=== PATIENT | female | born 1955 | race Two or more races ===

== ENCOUNTER 2018-08-25 14:41 | Inpatient (IN) | payer OTHER ==
[~2018-08-25] VITALS: Ht 157.5 cm; Wt 54.4 kg
--- NOTE | 2018-08-25 14:44 | NUR ---
ACTIVATED CODE STROKE. SEE CODE STROKE FORM.
[2018-08-25] MEDS ORDERED: IV NS 0.9% 500 ML BAG IV ONE (15:00)
--- NOTE | 2018-08-25 15:00 | NUR ---
patient presented to the ER due to slurred speech 30 mins prior arrival. on room air, breathing evenly and unlabored. kept comfortable. denies any pain at this time. connected to the monitor. will continue to monitor accordingly.
[2018-08-25 15:11] LABS: CALCIUM, SERUM 10.3 mg/dL (8.5-10.1); CARBON DIOXIDE 27 mmol/L (21-32); CHLORIDE 105 mmol/L (98-107); CREATININE 0.7 mg/dL (0.6-1.3); GLUCOSE 139 mg/dL (74-106); POTASSIUM 3.6 mmol/L (3.5-5.1); SODIUM SERUM 141 mmol/L (136-145); UREA NITROGEN, BLOOD 15 mg/dL (7-18)
[2018-08-25 15:16] LABS: ALANINE AMINOTRANSFERASE 49 U/L (12-78); ALBUMIN 4.3 g/dL (3.4-5.0); ALKALINE PHOSPHATASE 74 U/L (46-116); ASPARTATE AMINOTRANSFERASE 34 U/L (15-37); BILIRUBIN,DIRECT 0.1 mg/dL (0.0-0.2); BILIRUBIN,TOTAL 0.4 mg/dL (0.2-1.0); TOTAL PROTEIN, SERUM 8.2 g/dL (6.4-8.2)
--- NOTE | 2018-08-25 15:16 | NUR ---
CALLED TELE STROKE NUMBER AND BLADE ALIGNER NEUROLOGIST, DR PATEL, WILL CALL BACK.
[2018-08-25 15:20] LABS: BASOPHILS # (AUTO) 0.1 /CMM (0.0-0.2); EOSINOPHILS % (AUTO) 0.8 % (0.0-6.0); HEMATOCRIT 43 % (33-45); HEMOGLOBIN 14.4 g/dL (11.5-14.8); LYMPHOCYTES # (AUTO) 1.6 /CMM (0.8-4.8); LYMPHOCYTES % (AUTO) 26.7 % (20.0-44.0); MEAN CORPUSCULAR HGB CONC 33 g/dl (31.0-36.0); MEAN CORPUSCULAR VOLUME 94 fL (82-100); MONOCYTES # (AUTO) 0.5 /CMM (0.1-1.30); NEUTROPHILS # (AUTO) 3.8 /CMM (1.8-8.9); NEUTROPHILS % (AUTO) 63.5 % (43.0-81.0); PLATELET COUNT (AUTO) 256 /CMM (150-450); RED BLOOD CELL COUNT(AUTO) 4.58 MIL/uL (4.0-5.2)
[2018-08-25] MEDS ORDERED: ASPIRIN 325 MG TABLET ONE (15:58)
[2018-08-25] MEDS ORDERED: ASPIRIN 325 MG TABLET PO ONE (16:00)
[2018-08-25 16:21] LABS: CHOLESTEROL 270 mg/dL (<200); HDL CHOLESTEROL 95 mg/dL (40-60); LDL 151 mg/dL (0-99); TRIGLYCERIDES 113 mg/dL (30-150)
--- NOTE | 2018-08-25 17:25 | NUR ---
CALLED [facility] AND SPOKE TO ELVER MORGAN FOR VERO.
[2018-08-25 17:33] LABS: THYROID STIMULATING HORMONE 1.786 uIU/mL (0.358-3.74)
[2018-08-25 17:50] VITALS: BP 124/81
--- NOTE | 2018-08-25 17:52 | NUR ---
TRANSFERRED PATIENT VIA ACLS PROTOCOL IN NO APPARENT DISTRESS NOTED.
--- NOTE | 2018-08-25 18:00 | NUR ---
ADMISSION NOTES RECEIVED PATIENT FROM ER ON TELE Dx OF R/O STROKE. PUT PATIENT ON TELE MONITOR SR-75. PATIENT A/O X4, STABLE REFUSED DIZZINESS STABLE TO STAND AND SIT CHECKED V/S STABLE, BP-124/81,P-66, R-18, 02-100 ROOM AIR, T-97.8. PATIENT REFUSED PAIN AT THIS TIME. NO ACUTE RESPIRATORY DISTRESS, UNLABORED. LUNGS ARE CLEAR DURING CONSULTATION. PATIENT SELF CARE USING BATHROOM. SKIN ASSESSMENT DONE SKIN CLEAR INTACT. DR INGRAM AWARE OF NEW PATIENT, AND MEDICATION. CALL LIGHT WITHIN TO REACH. NEXT TO THE BED . CONTINUED MONITORING. ENDORSED ONCOMING NURSE FOR PLAN OF CARE.
[2018-08-25 18:16] VITALS: BP 153/101
--- NOTE | 2018-08-25 18:30 | NUR ---
RN NOTES PATIENT SEEN BY OT THERAPIST.
--- NOTE | 2018-08-25 19:00 | NUR ---
ADVISOR [employer] FOUNDER OPENING NOTES RECEIVED PATIENT IN BED AWAKE ALERT AND ORIENTED X 4, RESPIRATIONS EVEN AND UNLABORED WITH EQUAL RISE AND FALL OF CHEST, DENIES ANY PAIN OR DISCOMFORT AT THIS TIME, ABLE TO CARRY ON CONVERSATIONS AND CLEARLY PRONOUNCE AND SAY WORDS, NO SLURRED SPEECH NOTED. 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
[2018-08-25 20:00] VITALS: BP 121/76
--- NOTE | 2018-08-25 20:20 | NUR ---
TEXTED DR. LALA FOR MRI APPROVAL.
[2018-08-26] VITALS: BP 122/73
[2018-08-26 00:01] VITALS: BP 122/73
[2018-08-26 04:00] VITALS: BP 97/64
--- NOTE | 2018-08-26 06:49 | NUR ---
RESEARCH MICROBIOLOGIST CLOSING NOTES PATIENT IN BED AWAKE ALERT AND ORIENTED X 4, RESPIRATIONS EVEN AND UNLABORED WITH EQUAL RISE AND FALL OF CHEST, DENIES ANY PAIN OR DISCOMFORT AT THIS TIME, ABLE TO CARRY ON CONVERSATIONS AND CLEARLY PRONOUNCE AND SAY WORDS, NO SLURRED SPEECH NOTED. ON OPINION POLLS SURVEY WORKER SR WITH 1ST DEGREE AV BLOCK NO CHANGES 75, LEFT AC #18G INTACT AND PATENT, NO REDNESS, NO INFILTRATION PRESENT, SAFETY PRECAUTIONS IN PLACE, LOW BED AND LOCKED, CALL LIGHT KEPT WITHIN REACH, REMAINS COMFORTABLE AT THIS TIME, ALL NEEDS ATTENDED CONTINUED FREQUENT NEURO CHECKS NO CHANGE IN LOC AND MONITOR CLOSELY THROUGHOUT SHIFT WILL ENDORSE TO NEXT SHIFT.
--- NOTE | 2018-08-26 07:30 | NUR ---
Tele/RN - Assessment Patient in bed awake, alert and oriented x 4, admitted for r/o stroke. Patient denies chest pain, no c/o of weakness or dizziness, denies numbness or tingling sensation, stable on room air, speech is clear, no c/o difficulty swallowing, tele shows SR. Patient is ambulatory with steady gait, skin is intact. Labs reviewed, LDL 128, needs statin meds per stroke protocol, will notify Md. Pending neuro consult, echo, MRI brain, PT/OT/ST eval. Patient and updated on plan of care. Will continue with current medical management.
[2018-08-26 08:00] VITALS: BP 111/85
[2018-08-26] MEDS ORDERED: ASPIRIN EC 81 MG TABLET.DR PO SCH (09:00)
[2018-08-26 16:00] VITALS: BP 127/84
[2018-08-26] MEDS ORDERED: ASPI-1152 PO (16:18)
[2018-08-26] MEDS ORDERED: ATOR10TA PO (16:18)
--- NOTE | 2018-08-26 17:30 | NUR ---
MS/RN - Discharge Patient alert and oriented throughout the shift, cleared by neuro, discharged home in stable condition, remain afebrile, denies any pain, no c/o dizziness, numbness or tingling sensation, speech is clear, ambulatory with steady gait. Reviewed discharge instructions with patient and both verbalized full understanding of all teachings including medications and follow-up care with PCP within one week. Seek immediate medical attention for worsening symptoms, chest pain, shortness of breath, palpitations, weakness, loss of consciousness, neurological deficit, or any other emergent concerns. Prescription for Atorvastatin and ASA given. All belongings with patient and she denied any missing items. Patient refused photos to be taken of skin, no breakdown. Saline lock removed on the LAC with catheter tip intact, no redness, no swelling noted at the site. Discharge paperwork signed and copies were given per protocol. Accompanied to the lobby via wheelchair and transported by private car by Jc.
[2018-08-26] MEDS ORDERED: GADODIAMIDE 2.5 MMOL/5 ML VIAL IJ ONE (17:46)
[2018-08-26] MEDS ORDERED: GADODIAMIDE 5 MMOL/10 ML VIAL IJ ONE (17:46)
[2018-08-26] MEDS ORDERED: ATORVASTATIN 10 MG TABLET PO SCH (22:00)
== END 2018-08-26 17:33 | disposition home or self-care (01) | DRG 69 ==
LOC: ER 14:45 → TELE 17:10 → MED 08-26 09:52
PROVIDERS: ATTEND Registered Nurse
DX: G45.9 Transient cerebral ischemic attack, unspecified (principal); R47.01 Aphasia; E83.52 Hypercalcemia; G43.909 Migraine, unspecified, not intractable, without status migrainosus; F10.20 Alcohol dependence, uncomplicated; Z80.9 Family history of malignant neoplasm, unspecified; Y90.9 Presence of alcohol in blood, level not specified; Z82.3 Family history of stroke; Z79.82 Long term (current) use of aspirin; Z79.899 Other long term (current) drug therapy; R56.9 Unspecified convulsions; E03.9 Hypothyroidism, unspecified
CPT/HCPCS: 36415; 70450-TC; 70496-TC; 70498-TC; 70553-TC; 71045-TC; 80048-TC; 80061-TC; 80076-TC; 82962-TC; 84443-TC; 84484-TC; 85025-TC; 85730-TC; 87081-TC; 92611-TC; A9579; G0378; J7040

== ENCOUNTER 2019-01-20 14:01 | Emergency (ER) | payer OTHER ==
[~2019-01-20] VITALS: Ht 157.5 cm; Wt 53.5 kg
[~2019-01-20 14:01] MED LIST: ASPI-1152 PO; ATOR10TA PO
--- NOTE | 2019-01-20 14:12 | NUR ---
[id number] FRM HOME C/O DIZZINESS, NAUSEA AND VOMITING THAT STARTED 1100 S/P WORKING OUT. BG 161 SHIFT COORDINATOR. TO ER BED 3, HOOKED TO MONITOR, CHANGED TO GOWN, PROVIDED W WARM BLANKET, PT AOX4 , AWAITING MD SABA
--- NOTE | 2019-01-20 14:34 | NUR ---
DR CÁRDENAS AT BEDSIDE FOR EVAL.
[2019-01-20] MEDS ORDERED: IV NS 0.9% 1,000 ML BAG IV STA (14:37)
[2019-01-20] MEDS ORDERED: ONDANSETRON HCL/PF 4 MG/2 ML VIAL IVP STA (14:37)
[2019-01-20] MEDS ORDERED: DIAZEPAM 5 MG/ML 2 ML DISP.SYRIN ONE (14:45)
[2019-01-20] MEDS ORDERED: ONDANSETRON HCL/PF 4 MG/2 ML VIAL ONE ×2 (14:45→16:09)
[2019-01-20 14:48] LABS: BASOPHILS # (AUTO) 0.1 /CMM (0.0-0.2); BASOPHILS % (AUTO) 1.2 % (0.0-2.0); EOSINOPHILS % (AUTO) 0.2 % (0.0-6.0); HEMATOCRIT 44 % (33-45); HEMOGLOBIN 14.9 g/dL (11.5-14.8); LYMPHOCYTES # (AUTO) 1.4 /CMM (0.8-4.8); LYMPHOCYTES % (AUTO) 17.1 % (20.0-44.0); MEAN CORPUSCULAR HGB CONC 34 g/dl (31.0-36.0); MEAN CORPUSCULAR VOLUME 94 fL (82-100); MONOCYTES # (AUTO) 0.5 /CMM (0.1-1.30); MONOCYTES % (AUTO) 5.7 % (2.0-12.0); NEUTROPHILS # (AUTO) 6.3 /CMM (1.8-8.9); NEUTROPHILS % (AUTO) 75.8 % (43.0-81.0); PLATELET COUNT (AUTO) 234 /CMM (150-450); RED BLOOD CELL COUNT(AUTO) 4.65 MIL/uL (4.0-5.2); WHITE BLOOD COUNT (AUTO) 8.3 K/uL (4.3-11.0)
[2019-01-20 14:51] LABS: CALCIUM, SERUM 9.8 mg/dL (8.5-10.1); CREATININE 0.7 mg/dL (0.6-1.3); POTASSIUM 3.4 mmol/L (3.5-5.1)
[2019-01-20] MEDS ORDERED: AMIT25TA9 PO (14:54)
[2019-01-20] MEDS ORDERED: ATOR10TA PO (14:54)
[2019-01-20] MEDS ORDERED: ESZO2TAB31 PO (14:54)
[2019-01-20] MEDS ORDERED: LEVO50TA8 PO (14:54)
--- NOTE | 2019-01-20 14:57 | NUR ---
WHEELED OUT VIA [facility] FOR CT SCAN.
[2019-01-20] MEDS ORDERED: DIAZEPAM 5 MG/ML 2 ML DISP.SYRIN IV ONE (15:00)
[2019-01-20 15:03] LABS: ALBUMIN 4.3 g/dL (3.4-5.0); BILIRUBIN,DIRECT 0.1 mg/dL (0.0-0.2); BILIRUBIN,TOTAL 0.7 mg/dL (0.2-1.0); TOTAL PROTEIN, SERUM 7.9 g/dL (6.4-8.2)
--- NOTE | 2019-01-20 15:52 | NUR ---
SPOKE TO [facility] OF [facility]. FACE SHEET AND ER NOTES FAXED TO [phone] ACCEPTING MD: DR KAPOOR ETA: [facility] 1600
[2019-01-20] MEDS ORDERED: LABETALOL 20 MG/4 ML VIAL IV ONE ×2 (16:00→16:30)
[2019-01-20] MEDS ORDERED: LABETALOL HCL IV 100MG VIAL ONE (16:10)
--- NOTE | 2019-01-20 16:18 | NUR ---
[facility] CALLED,SPOKE WITH EULOGIO, NO BED AT THIS TIME,18 PATIENTS ARE STILL WAITING FOR ADMISSION AND DR MAGAÑA HAVE NO PRIVILAGE TO ADMIT OR TX.
[2019-01-20 16:19] VITALS: BP 131/92
[2019-01-20] MEDS ORDERED: ONDANSETRON HCL/PF 4 MG/2 ML VIAL IVP ONE (16:30)
--- NOTE | 2019-01-20 16:48 | NUR ---
Patient discharged to [facility] in stable condition. Written and verbal after care instructions given. Patient and family verbalizes understanding of instruction. Pt will be transferred to [facility]
--- NOTE | 2019-01-20 16:53 | NUR ---
NUMBER FOR REPORT [phone] [facility] [id number]
--- NOTE | 2019-01-20 17:32 | NUR ---
REPORT GIVEN TO JANET MORGAN ([facility]) VARSHA SWARTZ
== END 2019-01-20 16:58 | disposition short-term general hospital (02) ==
LOC: ER 14:01
DX: I62.9 Nontraumatic intracranial hemorrhage, unspecified (principal); R42 Dizziness and giddiness; E86.0 Dehydration; E07.9 Disorder of thyroid, unspecified; G43.909 Migraine, unspecified, not intractable, without status migrainosus; Z79.82 Long term (current) use of aspirin
CPT/HCPCS: 36415; 70450; 80048; 80076; 85025; 93005; 96361; 96374; 96375; 96376; 99291; J2405 ×2; J3360; J3490 ×3; J7030